=== PATIENT | female | born 1970 | race Asian ===

== ENCOUNTER 2018-07-14 08:46 | Outpatient (CLI) | payer BC | END 2018-07-14 20:12 | disposition home or self-care (01) | LOC: MAMMO 08:46 | DX: Z12.31 Encounter for screening mammogram for malignant neoplasm of breast (principal) ==

== ENCOUNTER 2021-06-17 10:36 | Outpatient (CLI) | payer BC | END 2021-06-17 19:24 | disposition home or self-care (01) | LOC: MAMMO 10:36 | PROVIDERS: ATTEND Registered Nurse | DX: Z12.31 Encounter for screening mammogram for malignant neoplasm of breast (principal) ==